=== PATIENT | male | born 1995 | race Caucasian/White ===

== ENCOUNTER → 2020-02-09 12:18 | Outpatient (BNVA) | payer MEDICAID, SELFPAY | PROVIDERS: Family Provider Nurse Practitioner Family; Visit Provider Nurse Practitioner Family | DX: S99.912A Unspecified injury of left ankle, initial encounter (principal); S99.922A Unspecified injury of left foot, initial encounter; X58.XXXA Exposure to other specified factors, initial encounter | CPT/HCPCS: 73610; 73630 ==

== ENCOUNTER → 2023-06-04 13:50 | Outpatient (BNVA) | payer MEDICAID, SELFPAY | PROVIDERS: Family Provider Nurse Practitioner Family; PCP Nurse Practitioner; Visit Provider Nurse Practitioner | DX: R10.9 Unspecified abdominal pain (principal); K59.00 Constipation, unspecified; K92.1 Melena | CPT/HCPCS: 74018 ==

== ENCOUNTER 2023-07-04 13:28 | Outpatient (CLI) | payer MEDICAID, SELFPAY ==
[2023-07-04] MEDS: iohexol 350 mg/mL 500 mL Btl (per mL) PO (13:56)
--- NOTE | 2023-07-04 14:00 | CT_ITS ---
WS: [id number] CT ABDOMEN AND PELVIS WITH CONTRAST HISTORY: K59.00 - Constipation, unspecified TECHNIQUE: Imaging performed of the abdomen and pelvis with IV contrast. Single phase imaging of the abdomen. Coronal and sagittal reformats are submitted. All CT scans at [facility] use at [address] one of these dose optimization techniques: automated exposure control; mA and/or kV adjustment per patient size (includes targeted exams where dose is matched to clinical indication); or iterative re construction. IV CONTRAST: Omnipaque 350; 100 mL IV. Oral contrast: Yes. DLP: 276.76 mGy.cm COMPARISON: None available. Lower thorax: Lung bases are clear. Heart is normal size. No hiatal hernia. Liver/biliary system: Normal size with no intrahepatic dilatation. Gallbladder: Normal. No gallstones or wall thickening. No pericholecystic fluid. Pancreas: Normal size pancreas and pancreatic duct. No adjacent inflammation. Spleen: Normal size spleen. No mass or infarct. Adrenal glands: Normal. Right kidney: Normal. Left kidney: Normal. Aorta: Normal. Lymphadenopathy: None. Free fluid: None. GI tract: Very limited evaluation of the GI tract. The appendix is not identified. There is moderate diffuse constipation. No obstruction. Abdominal wall: Unremarkable abdominal wall. No hernia. Pelvis: No free fluid or adenopathy within the pelvis. Bones: Unremarkable. IMPRESSION: 1. Negative CT abdomen and pelvis. 2. Limited evaluation of the GI tract. Only a small amount of the GI tract contains oral contrast. T he appendix is not identified. No obstructive pattern.
[2023-07-04] MEDS: iohexol 350 mg/mL 500 mL Btl (per mL) IV (14:28)
== END 2023-07-04 13:29 | disposition home or self-care (01) ==
LOC: RAD 13:28
PROVIDERS: Family Provider Nurse Practitioner Family; PCP Nurse Practitioner; Visit Provider Nurse Practitioner
DX: K59.00 Constipation, unspecified (principal)
CPT/HCPCS: 74177; Q9967